=== PATIENT | female | born 1940 | race Caucasian/White ===

== ENCOUNTER 2018-05-10 10:57 | Inpatient (IN) | payer MEDICARE ==
[~2018-05-10] VITALS: Ht 165.1 cm; Wt 54.4 kg
--- NOTE | ~2018-05-10 | CON ---
[address] [address] CONSULTATION Name: IVAN PEREZ Room: [address] IN .R.#: [id number] Admission: 05/10/18 Attend Phys: Saima Ferrell MD Discharge: Date of : 38 Report #: [id number] THIS REPORT FOR: //name// CC: Saima Ramirez DATE OF SERVICE: 05/11/2018 HISTORY OF PRESENT ILLNESS: This is a 77-year-old female patient who was evaluated by me with a poorly defined history. The patient is a very poor historian and I do not have any other family member who can provide any history. She apparently has a longstanding back problem. She said she had compression fracture in the past and she is becoming weaker. I do not know how long she has been getting weaker. She does have some problem with urinary symptom that is also poorly defined. I do not know what her nutritional status was in the past. REVIEW OF SYSTEMS: Her 14-point review of system is only from the record and to some extent from the patient. She had some history of hypothyroidism; back surgery; weakness, which to me tells me it is going on for a long time. She has been using walker for a long time and it is just worse recently how much I do not know. REVIEW OF SYSTEMS: A 14-point review of system was otherwise noncontributory. PAST MEDICAL HISTORY: Positive for weakness, which is present for some time. FAMILY HISTORY: Negative for any early age stroke. SOCIAL HISTORY: She said she does not drink any alcohol. PHYSICAL EXAMINATION: Indicate she is alert. She is responsive. She talks very slowly. When I talked to her, she very softly talked, but speech looks intact. Her memory is somewhat diminished, but she does not cooperate very well with the testing. She keeps her neck in one position and cranial nerve examination otherwise appear noncontributory. She has profound weakness in all 4 extremities, especially in the lower extremities. When I tried to do the position sense, she does okay, but I do not know about the pinprick. Her reflexes are diminished in generalized fashion, especially in the lower extremities, but I can elicit a little bit of reflex. Blood pressure is 147/72, respirations 14, pulse is 70, temperature is 97.8. LABORATORY DATA: WBC count is 4.7. She did have a CT scan of the head, which is unremarkable. IMPRESSION: It would appear that the patient has multiple problems. I completely agree with you to look for spine pathology in [place] [address] CONSULTATION Name: IVAN PEREZ Room: [address] IN [facility].#: [id number] Admission: 05/10/18 Attend Phys: Saima Ferrell MD Discharge: Date of : 38 Report #: [id number] is already ordered. She also appeared to have some neuropathy. She is rigid, but I do not know if she has Parkinson disease. She will need extensive workup for that. RECOMMENDATIONS: 1. Await MRI of the spine. 2. She will need EMG sometime, but need to be done as an outpatient. 3. We will do some additional workup. 4. We will see how she does with physical therapy and decide about further management. Dr. Blackmon will follow up this patient with you from tomorrow. Thank you very much for this referral. By: [id number] You MD /nt
[2018-05-10 10:59] VITALS: BP 155/80
[2018-05-10] MEDS ORDERED: SYNTHROID25 MC1 PO (11:12)
[2018-05-10] MEDS ORDERED: TYLENOL EXTRA500 MG PO (11:12)
[2018-05-10 11:22] LABS: ABSOLUTE LYMPHOCYTES 1.8 thou/uL (0.8-5.3); ABSOLUTE MONOCYTES 0.6 thou/uL (0.0-1.2); ABSOLUTE NEUTROPHILS 5.1 thou/uL (1.6-8.1); BASOPHILS 0.2 %; EOSINOPHILS 0.5 %; HEMATOCRIT 37.2 % (37.0-47.0); HEMOGLOBIN 12.6 gm/dL (12.0-15.0); LYMPHOCYTES 24.4 %; MCH 32.4 pg (26.0-34.0); MCHC 33.8 g/dL (28.0-37.0); MCV 95.9 fL (80.0-100.0); MONOCYTES 8.1 %; MPV 9.8 fl. (7.2-11.1); NUCLEATED RBCS 0 /100WBC; PLATELET COUNT* 159 thou/uL (150-400); POLYS 66.8 %; RBC 3.88 mil/uL (4.20-5.00); RDW-CV 13.4 % (10.5-14.5); WBC 7.6 thou/uL (4.0-11.0)
--- NOTE | 2018-05-10 12:09 | NUR ---
PT PLACED ON BED MCCLAIN PER REQUEST.
[2018-05-10 12:24] LABS: ANION GAP 8 mmol/L (7-16); BUN 25 mg/dL (7-18); CALCIUM 9.1 mg/dL (8.5-10.1); CHLORIDE 104 mmol/L (98-107); CO2 26 mmol/L (21-32); CREATININE 0.9 mg/dL (0.6-1.3); GLUCOSE 81 mg/dL (70-99); POTASSIUM 4.2 mmol/L (3.5-5.1); SODIUM 138 mmol/L (136-145)
[2018-05-10 12:35] LABS: ALBUMIN 3.6 g/dL (3.4-5.0); ALKALINE PHOSPHATASE 89 U/L (46-116); NT-PRO BRAIN NAT PEPTIDE 448 pg/mL (<300); SGOT 25 U/L (15-37); SGPT 20 U/L (30-65); TOTAL PROTEIN 6.8 g/dL (6.4-8.2); TROPONIN-I LEVEL <0.06 ng/mL (<0.06)
[2018-05-10 12:38] LABS: APTT 27.9 Seconds (25.0-31.3); PROTIME 10.6 Seconds (9.20-11.50)
[2018-05-10 13:03] LABS: URINE BILIRUBIN NEGATIVE (Negative); URINE BLOOD NEGATIVE (Negative); URINE CLARITY CLEAR; URINE COLOR YELLOW; URINE GLUCOSE-RANDOM NEGATIVE (Negative); URINE KETONES NEGATIVE (Negative); URINE LEUKOCYTES-REFLEX NEGATIVE (Negative); URINE NITRITE-REFLEX NEGATIVE (Negative); URINE PROTEIN NEGATIVE (Negative); URINE SPECIFIC GRAVITY 1.015 (1.005-1.030); URINE UROBILINOGEN 0.2 E.U./dl (0.2-1.0)
[2018-05-10 13:50] VITALS: BP 128/51
--- NOTE | 2018-05-10 14:23 | NUR ---
PT GIVEN LUNCH TRAY AND ASSISTED TO EAT.
[2018-05-10 14:32] VITALS: BP 139/70
--- NOTE | 2018-05-10 15:32 | EKG ---
[place] [address] ELECTROCARDIOGRAM REPORT Name: IVAN PEREZ Room: [address] ADM IN .R.#: [id number] Admission: 05/10/18 Attend Phys: Siama Ferrell MD Discharge: Date of : 38 Report #: [id number] THIS REPORT FOR: //name// [facility] ED Test Date: 2018-05-10 Test Time: 11:17:30 Pat Name: IVAN PEREZ Department: Room: [facility] Gender: F Experienced Truck Driver: ONOFRE : 1940 Requested By: Edson Stock Order Number: [id number] MD: Flaquito Gonzalez Measurements Intervals Montara Rate: 88 P: 74 VT: 167 QRS: 15 QRSD: 102 T: -18 QT: 371 QTc: 449 Interpretive Statements Sinus rhythm artifact noted Borderline T abnormalities, inferior leads No previous ECG available for comparison Electronically Signed On 05-10-2018 15:32:13 CHEMISTRY ASSOCIATE by Flaquito Gonzalez [email or web address] <ELECTRONICALLY SIGNED> By: Flaquito Gonzalez MD, MERGED WITH [facility] 05/10/18 1532 D: 02/1116 16 Flaquito Gonzalez MD, FACC /EPI
[2018-05-10 17:43] VITALS: BP 123/60
--- NOTE | 2018-05-10 18:41 | NUR ---
VSS-AFEBRILE. LUNGS CLEAR-ROOM AIR. SIGNIFICANT NUMBNESS WITH BILATERAL HANDS AND FEET. UNABLE TO FEED SELF, UNABLE TO STAND. USES BEDPAN, NO DIFFICULTY VOIDING. TOLERATED MEALS WELL, NURSE ASSIST FOR FEEDING. SCD'S IN PLACE. C/O BACK PAIN AROUND THE SMALL OF BACK WELL NECK PAIN. THIS PAIN IS CHRONIC IN NATURE, DELINES NEED FOR PAIN MEDICATION AT THIS TIME. LEFT FA IV PATENT WITH FLUIDS INFUSING, NO S/S OF INFILTRATION. CALLS APPROPRIATELY FOR ANY NEEDED ASSISTANCE.
[2018-05-10 19:40] VITALS: BP 112/56
--- NOTE | 2018-05-11 02:08 | NUR ---
INTITAL ASSESMENT COMPLETED AT 1941. PT PLEASANT AND COOPERATIVE. PT MAINTAINED ON BEDREST DUE TO ADMISSION FOR WEAKNESS. PT REPORTS NUMBNESS IN HANDS AND FEET HAVE BECOME WORSE AND CANNOT SAFELY AMBULATE. PT DENIED PAIN OR DISCOMFORT AT THAT TIME. PT REPOSITIONED Q 2 HRS PER STAFF. CALL LIGHT IN REACH. PT USING APPROPRIATELY.
[2018-05-11 06:30] LABS: HEMATOCRIT 30.9 % (37.0-47.0); MCH 32.7 pg (26.0-34.0); MCHC 34.1 g/dL (28.0-37.0); RBC 3.21 mil/uL (4.20-5.00); RDW-CV 13.5 % (10.5-14.5); WBC 4.7 thou/uL (4.0-11.0)
[2018-05-11 06:31] LABS: HEMOGLOBIN 10.5 gm/dL (12.0-15.0)
[2018-05-11 06:35] LABS: CALCIUM 8.8 mg/dL (8.5-10.1); CREATININE 0.7 mg/dL (0.6-1.3); MAGNESIUM 1.9 mg/dL (1.8-2.4); POTASSIUM 4.3 mmol/L (3.5-5.1)
[2018-05-11 08:20] VITALS: BP 146/69
--- NOTE | 2018-05-11 14:59 | 2DMMODE ---
[place] [address] 2 D/M-MODE ECHOCARDIOGRAM Name: IVAN PEREZ Room: [address] IN [facility]#: [id number] Admission: 05/10/18 Attend Phys: Saima Ferrell, Discharge: Date of : 38 Date of Service: 05/11/18 1459 Report #: [id number] THIS REPORT FOR: //name// APPROVED REPORT Study performed: 05/11/2018 09:57:33 EXAM: Comprehensive 2D, Doppler, and color-flow Echocardiogram Patient Location: In-Patient Room #: [facility] Status: routine BSA: 1.59 HR: 82 bpm BP: 112/56 mmHg Rhythm: NSR Other Information Study Quality: Good Indications elevated bnp, weakness, dehydration 2D Dimensions IVSd: 9.46 (7-11mm) LVOT Diam: 20.43 (18-24mm) LVDd: 56.77 mm PWd: 8.71 (7-11mm) Ascending Ao: 25.57 (22-36mm) LVDs: 30.03 (25-40mm) Aortic Root: 30.69 mm Volumes Left Atrial Volume (Systole) LA ESV Index: 69.00 mL/m2 Aortic Valve AoV Peak Rafa.: 1.60 m/s AO Peak Gr.: 10.22 mmHg LVOT Max P.54 mmHg AO Mean Gr.: 5.76 mmHg LVOT Mean P.54 mmHg LVOT Max V: 1.18 m/s AO V2 VTI: 35.72 cm LVOT Mean V: 0.72 m/s ANGELINA (VTI): 2.44 cm2 LVOT V1 VTI: 26.58 cm Mitral Valve E/A Ratio: 1.07 MV Decel. Time: 275.57 ms MV E Max Rafa.: 1.39 m/[place] [address] 2 D/M-MODE ECHOCARDIOGRAM Name: IVAN PEREZ Room: [address] IN .R.#: [id number] Admission: 05/10/18 Attend Phys: Saima Ferrell, Discharge: Date of : 38 Date of Service: 05/11/18 1459 Report #: [id number] MV PHT: 79.91 ms MVA (PHT): 2.75 cm2 TDI E/Lateral E': 11.58 E/Medial E': 11.58 Medial E' Rafa.: 0.12 m/s Lateral E' Rafa.: 0.12 m/s Pulmonary Valve PV Peak Rafa.: 1.07 m/s PV Peak Gr.: 4.55 mmHg Tricuspid Valve RAP Estimate: 5.00 mmHg TR Peak Gr.: 36.36 mmHg RVSP: 41.00 mmHg PA Pressure: 41.00 mmHg Left Ventricle The left ventricle is normal size. There is normal LV segmental wall motion. There is normal left ventricular wall thickness. Left ventricular systolic function is normal. LVEF is 60-65%. Grade III - reversible restrictive diastolic dysfunction. Right Ventricle The right ventricle is normal size. The right ventricular systolic function is normal. Atria Left atrium is moderately dilated. The right atrium size is normal. Aortic Valve The aortic valve is normal in structure. No aortic regurgitation is present. There is no aortic valvular stenosis. Mitral Valve There is mitral annular calcification. Moderate mitral regurgitation. No evidence of mitral valve stenosis. Tricuspid Valve The tricuspid valve is normal in structure. Mild tricuspid regurgitation. Moderate pulmonary hypertension. Pulmonic Valve The pulmonary valve is normal in structure. There is no pulmonic [place] [address] 2 D/M-MODE ECHOCARDIOGRAM Name: IVAN PEREZ Room: [address]#: [id number] Admission: 05/10/18 Attend Phys: Saima Ferrell, Discharge: Date of : 38 Date of Service: 05/11/18 1459 Report #: [id number] Great Vessels The aortic root is normal in size. IVC is normal in size and collapses <50% with inspiration. Pericardium There is no pericardial effusion. <Conclusion> The left ventricle is normal size. There is normal left ventricular wall thickness. Left ventricular systolic function is normal. LVEF is 60-65%. Grade III - reversible restrictive diastolic dysfunction. Left atrium is moderately dilated. Moderate mitral regurgitation. Mild tricuspid regurgitation. Moderate pulmonary hypertension. IVC is normal in size and collapses <50% with inspiration. <ELECTRONICALLY SIGNED> By: Merritt Barahona MD, FACC 05/11/18 1459 1459 1459 Merritt Barahona MD, FACC /INF
--- NOTE | 2018-05-11 16:09 | NUR ---
SW attempted to meet with pt; pt was with therapies. SW to continue to follow to complete assessment and assist with safe dc planning.
[2018-05-11 16:37] VITALS: BP 147/72
--- NOTE | 2018-05-11 16:56 | NUR ---
PATIENT DOWN FOR MRI OF SPINE THIS AFTERNOON, RESULTS CALLED TO DR. PENA. NEURO CONS PLACED, DR. GUTIERREZ STATED HE WOULD SEE RESULTS AT ANOTHER TIME. ECHO DONE THIS SHIFT, DR. PENA ALSO NOTIFIED OF RESULTS AND CARDIOLOGY CONSULTED. VOIDING PER BEDPAN. PATIENT ASSISTED WITH FEEDING MEALS. PATIENT UP WITH THERAPY INTO CHAIR THIS AFTERNOON. NO COMPLAINTS OF PAIN. IVF INFUSING ORDERED.
[2018-05-11 20:00] VITALS: BP 161/75
--- NOTE | 2018-05-12 04:44 | NUR ---
PATIENT RESTED IN BED, NO ACUTE CHANGES. PATIENT DID NOT SHOW SIGNS OF DISTRESS. FALL PRECAUTIONS IN PLACE, CALL LIGHT WITHIN REACH, HOURLY ROUNDING OBSERVED, BED ALARM ON.
--- NOTE | 2018-05-12 06:17 | NUR ---
CALL TO DOCTOR OLGA LIDIA REGARDING PATIENT'S LAST BOWEL MOVEMENT, NO NEW ORDERS.
[2018-05-12] MEDS ORDERED: VITAMIN D5000 UNIT PO (06:29)
[2018-05-12 08:15] VITALS: BP 168/81
--- NOTE | 2018-05-12 15:02 | NUR ---
HORTICULTURAL AGENT FAXED SKILLED REFERRAL TO [facility]. CM WILL REMAIN AVIALABLE TO ASSIT AND FOLLOW NEEDED.
--- NOTE | 2018-05-12 15:09 | NUR ---
SW met with pt to complete initial assessment, introduce self, and SW role. Pt alert, oriented, talkative. Pt was living at home with her son but is agreeable to SNF due to needing to be stronger and more functional in mobility and ADLs. Pt preference for SNF in [place], [facility] pt said would be okay, pt did not want [facility]. LIV discussed with dc network planner who will send referral to [facility]. SW notified Arianne in admissions with [facility]. SW to continue to follow to assist with safe dc planning.
[2018-05-12 16:00] VITALS: BP 143/80
--- NOTE | 2018-05-12 17:36 | NUR ---
PATIENT UP FREQUENTLY TO BSC AND CHAIR FOR MEALS. UTILIZING WALKER AND GAIT BELT. REFUSED TURNS, EDUCATION GIVEN. IV SL THIS SHIFT. PATIENT STARTED ON CELEXA PER NEURO THIS SHIFT. PATIENT GIVEN MIRALAX AND COLACE PER REQUEST, PATIENT HAD ONE SMALL LIQUID STOOL THIS AFTERNOON.
[2018-05-13] VITALS: BP 140/86
--- NOTE | 2018-05-13 06:09 | NUR ---
PATIENT SLEPT WELL DURING THIS SHIFT. PT UP TO BSC X2; HAD TWO LARGE BOWEL MOVEMENT. PT WITH SALINE LOCK IN LT FOREARM. PT DENIES PAIN/NAUSEA DURING THIS SHIFT. FREQUENTLY USED ITEMS AND CALL LIGHT WITHIN REACH. SIDERAILS UPX3 AND BED ALARM ON. WILL CONTINUE TO MONITOR.
[2018-05-13 08:00] VITALS: BP 154/80
[2018-05-13 16:00] VITALS: BP 129/67
--- NOTE | 2018-05-13 16:12 | NUR ---
SHIFT NOTE - PT UP IN CHAIR FOR MOST OF THE MORNING. PT UP WITH 1 ASSIST BSC. WILL CONTINUE TO MONITOR.
[2018-05-14 00:33] VITALS: BP 144/59
[2018-05-14 05:37] VITALS: BP 152/63
--- NOTE | 2018-05-14 05:59 | NUR ---
PATIENT ALERT/ORIENTED X4. PT ON ROOM AIR; VITALS WNL. PT UP TO BSC WITH ASSIST. PT VOIDS YELLOW URINE. PT DENIES PAIN/NAUSEA DURING THIS SHIFT. PT SLEPT WELL. PT DENIES NEEDS AT THIS TIME. FREQUENTLY USED ITEMS AND CALL LIGHT WITHIN REACH. SIDERAILS UPX2 AND BED ALARM ON. WILL CONTINUE TO MONITOR.
[2018-05-14 08:00] VITALS: BP 146/60
[2018-05-14 16:00] VITALS: BP 159/69
--- NOTE | 2018-05-14 17:22 | NUR ---
SHIFT NOTE - PT UP TO BSC X 1 SEVERAL TIMES THIS SHIFT. TOLERATED WELL. UP TO CHAIR SEVERAL TIMES THIS SHIFT. WILL CONTINUE TO MONITOR.
[2018-05-15] VITALS: BP 110/45
[2018-05-15 08:05] VITALS: BP 145/73
--- NOTE | 2018-05-15 11:06 | NUR ---
LIV received message from Arianne with [facility] checking in on referral and SW called back to discuss status of referral. Arianne stated that [facility] may not have a bed available today and she also stated that pt had used 20 days at a SNF in January so she would need to also check that the pt's SNF days have reset as long as pt did not return to a hospital or SNF for 60 straight days. Pt does not have secondary insurance so pt would be responsible for the copay. SW to discuss with pt another SNF preference and discuss SNF history as well as hospitalization history and SW will continue to follow to assist with safe dc planning/SNF placement.
--- NOTE | 2018-05-15 12:17 | NUR ---
D/C DEFENCE INTELLIGENCE ANALYST SPOKE TO ADMISSIONS WITH [facility] TO INFORM OF THE NEED FOR SKILLED BED FOR PATIENT AT D/C. D/C DEFENCE INTELLIGENCE ANALYST FAXED THE PATIENT'S CLINICAL INFO, AND PT/OT NOTES TO [facility]. PATIENT HAS ORDERS TO D/C TODAY. CM WILL REMAIN AVAILABLE TO ASSIST AND FOLLOW NEEDED.
[2018-05-15] MEDS ORDERED: CELEXA20 MG PO (12:33)
[2018-05-15 12:34] VITALS: BP 145/73
--- NOTE | 2018-05-15 16:18 | NUR ---
PATIENT UP TO CHAIR FOR MEALS. NO COMPLAINTS OF PAIN. UP TO BEDSIDE COMMODE WITH ASSISTANCE. BOWEL MOVEMNT NOTED THIS MORNING. PATIENT DISCHARGED TO THE [facility]. IV DC'D. REPORT CALLED TO ALAINA. PATIENT LEFT VIA WHEELCHAIR VAN WITH ALL BELONGINGS.
--- NOTE | 2018-05-16 14:12 | CON ---
[address] [address] CONSULTATION Name: IVAN PEREZ Room: [address] IN .R.#: [id number] Admission: 05/10/18 Attend Phys: Saima Ferrell MD Discharge: 05/15/18 Date of : 38 Report #: [id number] THIS REPORT FOR: //name// CC: Saima Ramirez CARDIOLOGY CONSULTATION INDICATION: Abnormal echocardiogram. HISTORY OF PRESENT ILLNESS: The patient is a very pleasant 77-year-old female who was admitted to the hospital with debility and chronic back pain. As part of her evaluation, she underwent an echocardiogram. This shows normal LV systolic function. She has evidence of grade 3 diastolic dysfunction, signifying elevated left atrial pressures as well as abnormal left ventricular relaxation. Additionally, her echocardiogram suggested moderate pulmonary hypertension. The patient's primary problem appears to be osteoporosis and severe kyphoscoliosis, likely leading to restrictive lung disease. At the time of my interview, the patient was not having any significant shortness of breath or chest pain. She denied any significant cardiac history, with the exception of rheumatic fever as an . She does not have any findings on her echocardiogram to suggest rheumatic heart disease. A 12-lead EKG shows sinus rhythm, with no significant ST or T-wave abnormalities. CURRENT MEDICATIONS: Levothyroxine. ALLERGIES: SULFA. SOCIAL HISTORY: The patient is a lifelong nonsmoker. She lives with her son. FAMILY HISTORY: Noncontributory. PHYSICAL EXAMINATION: VITAL SIGNS: Stable. Blood pressure is 147/72 with a pulse rate of 70. GENERAL: This is a pleasant, alert, elderly female in no distress. Her posture is obviously compromised by kyphoscoliosis. HEENT: Head is normocephalic, atraumatic. Extraocular muscles intact. NECK: Examination of the neck shows no jugular venous distention. CHEST: Examination of the chest reveals clear lung lara. I do not appreciate wheezes or rales. CARDIAC EXAMINATION: Reveals a regular rhythm, without gallop or murmur. ABDOMEN: Examination of the abdomen reveals a soft abdomen, with normal bowel sounds. EXTREMITIES: Show no edema. SKIN: [place] [address] CONSULTATION Name: IVAN PEREZ Room: [address]#: [id number] Admission: 05/10/18 Attend Phys: Saima Ferrell MD Discharge: 05/15/18 Date of : 38 Report #: [id number] DIAGNOSTIC DATA: Echocardiogram obtained today shows EF of 60% to 65%. There is grade 3 diastolic dysfunction noted. The left atrium appears mildly dilated. There is moderate mitral and mild tricuspid insufficiency. There is moderate pulmonary hypertension. IMPRESSION AND RECOMMENDATIONS: 1. Grade 3 diastolic dysfunction on echocardiogram, consistent with chronic diastolic heart failure that appears well compensated. There is no specific treatment for diastolic heart failure. The patient appears stable at this point in time and I would not recommend any additional treatment. She is not volume overloaded and does not require any type of diuresis at this time. 2. Pulmonary hypertension, likely contributed by the patient's significant restrictive lung disease or kyphoscoliosis. No specific treatment. 3. Hypertension. The patient's blood pressure does appear to be somewhat labile. She is not having any symptoms related to this. I believe she does have elevations in her blood pressure along with her chronic and intermittent back pain. I do not believe specific treatment of blood pressure would be helpful at this time. 4. Moderate mitral insufficiency, currently of no clinical consequence. Would consider serial echocardiograms. From a cardiac standpoint, the patient appears stable. I do not believe additional treatment is warranted at this time. We will follow as needed. <ELECTRONICALLY SIGNED> By: Merritt Barahona MD, FACC 05/16/18 1412 1724 0027Merritt Barahona MD, FACC /nt
== END 2018-05-15 16:10 | DRG 543 ==
LOC: M.ERS 10:57 → M.3W 12:28 → M.TBA-ER 12:28 → M.3W 14:45
PROVIDERS: Family Medicine; ADMIT Internal Medicine
DX: M48.54XA Collapsed vertebra, not elsewhere classified, thoracic region, initial encounter for fracture (principal); I50.32 Chronic diastolic (congestive) heart failure; G95.0 Syringomyelia and syringobulbia; M50.30 Other cervical disc degeneration, unspecified cervical region; M54.9 Dorsalgia, unspecified; I34.0 Nonrheumatic mitral (valve) insufficiency; K59.09 Other constipation; M41.9 Scoliosis, unspecified; N39.41 Urge incontinence; E03.9 Hypothyroidism, unspecified; I27.20 Pulmonary hypertension, unspecified; I11.0 Hypertensive heart disease with heart failure; E86.0 Dehydration; Z88.2 Allergy status to sulfonamides

== ENCOUNTER 2020-01-06 21:21 | Emergency (ER) | payer MEDICARE ==
[~2020-01-06] VITALS: Ht 177.8 cm; Wt 71.4 kg
--- NOTE | ~2020-01-06 | EMS ---
[address] [address] EMS Patient Care Report Name: IVAN COCHRAN Room: [facility] Wesley#: [id number] Admission: 01/06/20 Attend Phys: Discharge: 01/07/20 Date of : 39 Report #: [id number] THIS REPORT FOR: //name// Report Transmitted: 01/07/2020 05:03 EMS Care Summary [facility] Incident [id number] @ 01/06/2020 20:29 Incident Location [address] [place] [address] Patient ivan Cochran Female, 79 Years 1940 Patient Address [address] [place] [address] Patient History Hypothyroidism, unspecified,Hypertension (HTN), Patient Allergies , Patient Medications Amlodipine, Hydroxyzine, Chief Complaint Rash/Itching Disposition Transported No Lights/[place] Reason Unknown Problem/Person Down Transported To [facility] Narrative Medic 322 was dispatched for a 911 call for a unknown problem. Medic 322 arrived on scene to find a female subject laying in her bed. The patient stated that she had a rash for about a week. She also stated that the senior care staff was not treating the rash. The senior care staff stated that they were [address] [address] EMS Patient Care Report Name: IVAN COCHRAN Room: [facility]#: [id number] Admission: 01/06/20 Attend Phys: Discharge: 01/07/20 Date of : 38 Report #: [id number] putting cream on the rash. The patient also complainted of feeling like she was going in circles and had bugs crawling on her. she is supposed to see her doctor tomorrow about the rash. Adelaida Day started an assessment on the patient. Adelaida Day transferred the patient to the [facility] using the stand and pivot manuever, and secured her using all the straps provided. The patient was transferred to the [facility] without difficulty. Adelaida Day transported the patient to the ambulance using the [facility]. Once in the back of the ambulance Adelaida Day continued her assessment on the patient. Devonte Mota took a set of vitals on the patient about every ten to fifteen minutes. The patient rested comfortably on the [facility] during the transport. She wanted to be transported to [place]. Adelaida Day arrived at [facility] and transported the patient to her room using the litter. The patient was transferred to the hospital bed using the sheet slide maneuver. Adelaida Day gave a verbal report to the nurse, and transferred patient care to the nurse. HIPAA was signed by the patient. Devonte Mota EMT-P# [id number] Initial Vitals @20:56P: 100,R: 18,BP: 199/109, @21:06P: 100,R: 18,BP: 108/98, @20:56GCS: 15, @21:06GCS: 15, Assessments @20:36MENTAL:SKIN:HEENT:LUNG SOUNDS:ABDOMEN:PELVIS//GI:EXTREMITIES:PULSE:NEURO: Impression Other general symptoms and signs Timeline 20:,Call Received 20:,Dispatch Notified 20:,Psap Call 20:,Dispatched 20:29,En Route 20:33,On Scene 20:36,At Patient 20:56,Depart Scene 20:56,BP: 199/109 M,PULSE: 100,RR: 18 R,SPO2: Ox,ETCO2: ,BG: ,PAIN: ,GCS: , 20:56,BP: / M,PULSE: ,RR: R,SPO2: Ox,ETCO2: ,BG: ,PAIN: ,GCS: 15, 21:06,BP: 108/98 M,PULSE: 100,RR: 18 R,SPO2: Ox,ETCO2: ,BG: ,PAIN: ,GCS: , 21:06,BP: / M,PULSE: ,RR: R,SPO2: Ox,ETCO2: ,BG: ,PAIN: ,GCS: 15, 21:19,At Destination 21:33,[place] [address] EMS Patient Care Report Name: IVAN COCHRAN Carla [id number] Admission: 01/06/20 Attend Phys: Discharge: 01/07/20 Date of : 38 Report #: [id number] Disclaimer v1.1 Copyright 2020 [employer] This EMS Care Summary contains data elements from the applicable legal record (which may be displayed differently). It is designed to provide pertinent information for the following purposes: continuity of care, clinical quality, and state data reporting. The complete legal record is available to ED staff and administrators of the receiving hospital in [employer] Patient Tracker. All data is provided "as is."
[~2020-01-06 21:21] MED LIST: CELEXA20 MG PO; SYNTHROID25 MC1 PO; TYLENOL EXTRA500 MG PO; VITAMIN D5000 UNIT PO
[2020-01-07 00:20] LABS: ABSOLUTE BASOPHILS 0.1 thou/uL (0.0-0.2); ABSOLUTE EOSINOPHILS 0.5 thou/uL (0.0-0.7); ABSOLUTE LYMPHOCYTES 3.2 thou/uL (0.8-5.3); ABSOLUTE MONOCYTES 0.9 thou/uL (0.0-1.2); ABSOLUTE NEUTROPHILS 6.5 thou/uL (1.6-8.1); BASOPHILS 1.2 %; EOSINOPHILS 4.4 %; HEMATOCRIT 38.7 % (37.0-47.0); LYMPHOCYTES 28.4 %; MCH 31.1 pg (26.0-34.0); MCHC 33.6 g/dL (28.0-37.0); MCV 92.4 fL (80.0-100.0); MONOCYTES 8.1 %; MPV 8.5 fl. (7.2-11.1); NUCLEATED RBCS 0 /100WBC; PLATELET COUNT* 154 thou/uL (150-400); POLYS 57.9 %; RBC 4.19 mil/uL (4.20-5.00); RDW-CV 14.2 % (10.5-14.5); WBC 11.2 thou/uL (4.0-11.0)
[2020-01-07 00:40] LABS: CALCIUM 8.9 mg/dL (8.5-10.1); CREATININE 0.9 mg/dL (0.6-1.3); POTASSIUM 4.8 mmol/L (3.5-5.1)
[2020-01-07 00:44] LABS: ALBUMIN 3.6 g/dL (3.4-5.0); TOTAL BILIRUBIN 0.6 mg/dL (<0.1-1.0); TOTAL PROTEIN 7.5 g/dL (6.4-8.2)
[2020-01-07 01:18] LABS: URINE BILIRUBIN NEGATIVE (Negative); URINE BLOOD NEGATIVE (Negative); URINE CLARITY CLEAR; URINE COLOR STRAW; URINE GLUCOSE-RANDOM NEGATIVE (Negative); URINE KETONES NEGATIVE (Negative); URINE LEUKOCYTES-REFLEX TRACE (Negative); URINE NITRITE-REFLEX NEGATIVE (Negative); URINE PROTEIN NEGATIVE (Negative); URINE SPECIFIC GRAVITY 1.015 (1.005-1.030); URINE UROBILINOGEN 0.2 E.U./dl (0.2-1.0)
[2020-01-07 01:40] LABS: CASTS None Seen /LPF (None Seen); SQUAMOUS 0-3 Few /LPF (0-3)
[2020-01-07 01:41] LABS: BACTERIA-REFLEX >30 Many /HPF (None Seen); URINE RBC None Seen /HPF (0-2); URINE WBC-REFLEX 0-5 Rare /HPF (0-5)
[2020-01-07 01:42] LABS: CRYSTALS None Seen /LPF (None Seen)
[2020-01-07 02:13] LABS: ESR (SEDRATE) 7 mm/hr (0-30)
[2020-01-07] MEDS ORDERED: DOXYCYCLINE 10100 MG PO (03:16)
[2020-01-07] MEDS ORDERED: MUPIROCIN15 GM TOP (03:17)
[2020-01-07 03:46] VITALS: BP 134/54
== END 2020-01-07 04:42 | disposition home or self-care (01) ==
LOC: M.ERS 21:21
PROVIDERS: Emergency Medicine
DX: R21 Rash and other nonspecific skin eruption (principal); N39.0 Urinary tract infection, site not specified; H57.89 Other specified disorders of eye and adnexa; E03.9 Hypothyroidism, unspecified; Z79.899 Other long term (current) drug therapy; Z88.2 Allergy status to sulfonamides